=== PATIENT | female | born 1990 | race Caucasian/White ===

== ENCOUNTER → 2016-10-15 | Outpatient (CLI) | payer OTHER ==
[~2016-10-15] MED LIST: CARB0.5D28 OP; NORE1CHW11 PO
--- NOTE | 2016-10-15 12:49 | MAMMOGRAPHY REPORT ---
ULTRASOUND OF LEFT BREAST: 10/15/2016 CLINICAL HISTORY: The patient reports a 4 month history of a focal area of skin discoloration on the left breast with associated itching and tenderness. The patient was placed on antibiotic cream, wi th no improvement. She denies any palpable lumps in the region. COMPARISON: No prior exams were available for comparison. TECHNIQUE: Real-time targeted ultrasound of the left breast was performed. FINDINGS: Real-time, high-resolution targeted ultrasound was performed of the area of skin discoloration with associated itching and tenderness pointed out by the patient, in the left breast at approximately 2: 00, 13 cm from the nipple. Sonographically normal tissue is seen in this region, without evidence o f a mass or other suspicious sonographic abnormality. Additionally, no intradermal mass is seen in this region. IMPRESSION: ACR BI-RADS CATEGORY 1: NEGATIVE No sonographic abnormality at the site of focal skin discoloration with associated itching/tendernes s in the left breast. There is no sonographic evidence of malignancy. Recommend clinical follow-up; if the finding is clinically concerning, consider dermatology consultation for further evaluation. The patient was verbally notified of the results. Jessica Laird M.D. ah/:10/15/2016 10:27:23 Attending Technologist: Sunny TAM(Harpreet)(M), [facility] Senior Examiner: Jessica Laird MD, [facility] letter sent: Normal 1/2 BI-RADS Code: ACR BI-RADS Category 1: Negative
== END | disposition home or self-care (01) ==
LOC: C.MAMM 09:16
PROVIDERS: ATTEND Internal Medicine
DX: N64.89 Other specified disorders of breast (principal)